=== PATIENT | female | born 1950 | race Caucasian/White ===

== ENCOUNTER 2021-02-26 06:16 | Observation (INO) ==
[~2021-02-26 06:16] MED LIST: Buffered Lidocaine 1% SYRIN 1 ml INTRADERM ONE; Famotidine IV 10 MG/ML 2 ml VIAL (20 mg) IV ONE; Lactated Ringers 1000 ml BAG 1,000 ML IV SCH
[2021-02-26] MEDS ORDERED: Famotidine IV 10 MG/ML 2 ml VIAL (20 mg) ONE (06:41)
[2021-02-26] MEDS ORDERED: ceFAZolin 2 GM PREMIX 2 GM/50 ML BAG ONE (06:41)
[2021-02-26] MEDS ORDERED: fentaNYL 100 mcg/2 ml 50 MCG/ML VIAL ONE ×2 (07:27→08:56)
[2021-02-26] MEDS ORDERED: Midazolam 2 mg/2 ml VIAL 1 mg/ml 2 ml VIAL (2 mg) ONE ×2 (07:27→12:16)
[2021-02-26] MEDS ORDERED: ROPIVACAINE 5 MG/ML 30 ML BTL (0.5%) ONE ×2 (07:32→08:56)
[2021-02-26] MEDS ORDERED: Midazolam 5 mg/5 ml VIAL 1 mg/ml 5 ml VIAL (5 mg) ONE (08:56)
[2021-02-26] MEDS ORDERED: Lidocaine 2% PF 5 ML VIAL ONE (08:56)
[2021-02-26] MEDS ORDERED: Propofol 10 MG/ML 20 ML BTL ONE (09:07)
[2021-02-26] MEDS ORDERED: EPHEDrine (Pressors) 50 MG/ML VIAL ONE (10:46)
[2021-02-26] MEDS ORDERED: Ondansetron ODT 4 mg TAB 4 MG TAB PO PRN (11:11)
[2021-02-26] MEDS ORDERED: Ondansetron 4 mg VIAL 2 MG/ML 2 ml VIAL IV PRN ×2 (11:11→11:29)
[2021-02-26] MEDS ORDERED: Magnesium Hydroxide LIQ 30 ML UDC PO PRN (11:11)
[2021-02-26] MEDS ORDERED: diPHENhydraMINE 25 mg TAB PO PRN (11:11)
[2021-02-26] MEDS ORDERED: Lactulose 30 ml UDC PO PRN (11:11)
[2021-02-26] MEDS ORDERED: Morphine 2 MG/ML SYRINGE IV PRN (11:11)
[2021-02-26] MEDS ORDERED: diPHENhydraMINE IV 50 MG/ML 1 ml VIAL (BENADRYL) IV PRN (11:11)
[2021-02-26] MEDS ORDERED: Naloxone 0.4 mg VIAL 0.4 mg/ml 1 ml VIAL IV PRN (11:29)
[2021-02-26] MEDS ORDERED: fentaNYL 100 mcg/2 ml 50 MCG/ML VIAL IV PRN (11:29)
[2021-02-26] MEDS ORDERED: Bupivacaine 0.5% SDV PF 30ML VIAL ONE (14:20)
[2021-02-26] MEDS ORDERED: Lactated Ringers 500 ml BAG 500 ML IV ONE (14:43)
[2021-02-26] MEDS ORDERED: HYDROcodone/ACETAMIN 5/325 mg TAB PO PRN ×2 (15:17→15:25)
[2021-02-26] MEDS: ceFAZolin 1 GM ADVAN 1 GM in NS 0.9% 50 ML 50 ML IVPB SCH (16:54)
[2021-02-26] MEDS ORDERED: Prochlorperazine 5 mg/ml 2 ml VIAL (10 mg) IV PRN (17:07)
[2021-02-26] MEDS: Lactated Ringers 1000 ml BAG 1,000 ML IV SCH (19:10)
[2021-02-26] MEDS ORDERED: CMC:Simvastatin 20 mg TAB (NF) PO SCH (21:00)
[2021-02-26] MEDS: Magnesium Hydroxide LIQ 30 ML UDC PO SCH (21:53)
[2021-02-27] MEDS: ceFAZolin 1 GM ADVAN 1 GM in NS 0.9% 50 ML 50 ML IVPB SCH ×2 (00:52→08:59)
[2021-02-27] MEDS: Lactated Ringers 1000 ml BAG 1,000 ML IV SCH (04:36)
[2021-02-27 06:23] LABS: Hematocrit 30 % (35-47); Hemoglobin 10.7 g/dL (12.0-16.0); Mean Platelet Volume 8.9 fL (7.4-10.4); Platelet Count 121 10^3/uL (150-450)
[2021-02-27 06:43] LABS: Calcium 8.3 mg/dL (8.6-10.3); EGFR African American 89.4 (>60); EGFR Non-African American 73.9 (>60); Potassium 4.3 mmol/L (3.5-5.0)
[2021-02-27] MEDS: Magnesium Hydroxide LIQ 30 ML UDC PO SCH (08:59)
[2021-02-27] MEDS ORDERED: Vitamin THERAPEUTIC TAB PO SCH (09:00)
[2021-02-27] MEDS ORDERED: Aspirin EC 81 mg TAB.EC (enteric coated) PO SCH (09:00)
[2021-02-27 16:10] VITALS: BP 122/55
[2021-03-01] MEDS ORDERED: Scopolamine PATCH Remove NOTE PATCH OFF ONE (06:00)
== END 2021-02-27 16:13 | disposition home or self-care (01) ==
LOC: SSU 06:16 → OR 06:16
PROVIDERS: ADMIT Orthopaedic Surgery Adult Reconstructive Orthopaedic Surgery; ATTEND Internal Medicine